=== PATIENT | female | born 1970 | race Caucasian/White ===

== ENCOUNTER 2024-12-29 14:02 | Emergency (ER) | payer OTHER, SELFPAY ==
[2024-12-29] MEDS ORDERED: Ketorolac Tromethamine 30 MG (1 mL) VIAL ONE (14:37)
[2024-12-29] MEDS ORDERED: Ondansetron PF 4 MG/2 ML Vial ONE (14:38)
[2024-12-29 14:41] LABS: #Basophils 0.1 thou/uL (0.0-0.2); #Eosinophils 0.4 thou/uL (0.0-0.7); #Lymphocytes 2.1 thou/uL (1.20-3.40); #Monocytes 0.5 thou/uL (0.11-0.59); #Neutrophils 4.2 thou/uL (1.40-6.50); %Basophils 1.0 % (0.0-1.0); %Eosinophils 4.9 % (0.0-10.0); %Lymphocytes 29.7 % (21.0-51.0); %Monocytes 6.4 % (0.0-10.0); %Neutrophils 58.1 % (42.0-75.0); Hematocrit 42.4 % (36.0-47.0); Hemoglobin 14.1 g/dL (12.0-16.0); Mean Corpuscular Hemoglobin 30.4 pg (27.0-31.0); Mean Corpuscular Volume 91.3 fl (78.0-98.0); Platelet Count 312 10x3/uL (130-400); Red Blood Cell (RBC) Count 4.64 mill/uL (4.20-5.40); White Blood Cell (WBC) Count 7.2 10x3/uL (4.8-10.8)
[2024-12-29 14:59] LABS: ALT (SGPT) 17 U/L (Less than 34); AST (SGOT) 20 U/L (11-34); Albumin 4.2 g/dL (3.1-4.5); Alkaline Phosphatase 89 U/L (40-110); Anion Gap 15 mmol/L (10-20); BUN (Urea Nitrogen) 14 mg/dL (9.8-20.1); Bilirubin, Total 0.5 mg/dL (0.3-1.2); Calc. Creatinine Clearance 0 mL/min (70-130); Calcium 9.8 mg/dL (7.8-10.44); Carbon Dioxide 25 mmol/L (22-29); Chloride 104 mmol/L (98-107); Globulin 2.7 g/dL (2.4-3.5); Glucose 91 mg/dL (70-105); Magnesium 1.9 mg/dL (1.6-2.6); Potassium 3.9 mmol/L (3.5-5.1); Sodium 140 mmol/L (136-145)
[2024-12-29 15:01] LABS: Troponin I Less than 0.010 ng/mL (< 0.028)
[2024-12-29 15:49] LABS: Glucose, Urine (Dipstick) Negative (Negative); Leukocyte Negative (Negative); Protein, Urine (Dipstick) Negative (Neg-Trace); Specific Gravity, Urine 1.010 (1.005-1.030)
[2024-12-29 16:01] LABS: CAUTI Indications for Culture Alt mental st,lethar; RBC/HPF 0-3 HPF (0-3); WBC/HPF 0-3 HPF (0-3)
[2024-12-29 16:03] LABS: Urine Culture Reflex No No
== END 2024-12-29 16:28 | disposition home or self-care (01) ==
LOC: NAV ERS 14:02
DX: R53.83 Other fatigue (principal); R11.0 Nausea; F17.210 Nicotine dependence, cigarettes, uncomplicated; F17.290 Nicotine dependence, other tobacco product, uncomplicated
CPT/HCPCS: 71046; 80053; 81001; 83735; 83880; 84484; 85025; 93005; 94760; 96374; 96375; J1885; J2405; J7030